=== PATIENT | female | born 1940 | race Caucasian/White ===

== ENCOUNTER 2017-08-13 15:14 | Inpatient (IN) | payer OTHER ==
[~2017-08-13] VITALS: Ht 170.2 cm; Wt 92.8 kg
[~2017-08-13 15:14] MED LIST: ADVAIR HFA120 INHALA IH; ENDOCET 5-3251 EACH PO; ERGOCALCIF50000 UNIT PO; LEVOFLOXACIN750 MG PO; LISINOPRIL20 MG PO; LISINOPRIL40 MG PO; LOVENOX40 MG/0.4 SC; NAPROSYN500 MG PO; NIFEDIPINE ER30 MG PO; PREDNISONE5 MG PO; PROAIR HFA8.5 GM IH; PROVENTIL,2.5 MG/3 M IH; RANITIDINE HCL150 MG PO; SIMVASTATIN20 MG PO; SPIRIVA1 INHALATI IH; TOPROL XL50 MG PO; TRAMADOL HCL50 MG PO; TYLENOL EXTRA500 MG PO; ZESTORETIC 20-1 EAC1 PO
[2017-08-13 16:02] LABS: BASOPHIL (%) 0.2 % (0-1); EOSINOPHIL (%) 0 % (0-5); HEMATOCRIT 38.7 % (36.0-46.0); HEMOGLOBIN 12.7 G/DL (11.9-15.5); IMMATURE GRANULOCYTE (%) 0.6 % (0.0-0.7); LYMPHOCYTE (%) 10.3 % (15-42); LYMPHOCYTE COUNT 1.6 K/uL (1.0-2.8); MCH 31.4 PG (29.0-34.0); MCHC 32.8 G/DL (30.0-36.0); MCV 95.6 FL (83-99); MONOCYTE (%) 7.8 % (3-12); MONOCYTE COUNT 1.2 K/uL (0-0.8); NEUTROPHIL (%) 81.1 % (45-76); NEUTROPHIL COUNT 12.4 K/uL (1.8-6.4); PLATELET COUNT 182 K/uL (156-360); RBC DIS.WIDTH-CV 13.4 % (11.8-14.6); RBC DIS.WIDTH-SD 47.9 % (39-53); RED BLOOD COUNT 4.05 M/uL (3.80-5.20); WHITE BLOOD COUNT 15.3 K/uL (4.1-10.2)
[2017-08-13 16:14] LABS: ALBUMIN 3.3 g/dL (3.2-4.8); CHLORIDE 103 mEq/L (99-109); POTASSIUM 3.7 mEq/L (3.7-5.4); SODIUM 141 mEq/L (136-147)
[2017-08-13 16:17] LABS: GLUCOSE 131 mg/dL (70-99); TOTAL PROTEIN 7.3 g/dL (6.4-8.3)
[2017-08-13 16:19] LABS: TOTAL BILIRUBIN 0.8 mg/dL (0.0-1.0)
[2017-08-13 16:20] LABS: ALKALINE PHOSPHATASE 146 IU/L (3-129); CREATININE 1.1 mg/dL (0.6-1.3); GFR ESTIMATE (CALCULATED) 51 mL/min/
[2017-08-13 16:21] LABS: UREA NITROGEN (BUN) 20 mg/dL (9-23)
[2017-08-13 16:22] LABS: AST (GOT) 21 IU/L (2-34)
[2017-08-13 16:23] LABS: ALT (GPT) 9 IU/L (3-49)
[2017-08-13 16:29] LABS: TROP-I INTERPRETATION NEGATIVE; TROPONIN-I 0.07 ng/mL (0.0-0.30)
[2017-08-13] MEDS ORDERED: LISINOPRIL20 MG PO (17:52)
[2017-08-13] MEDS ORDERED: COLACE100 MG PO (17:53)
[2017-08-13] MEDS ORDERED: FUROSEMIDE40 MG PO (17:53)
[2017-08-13 19:34] LABS: APPEARANCE CLOUDY ((CLEAR)); BILIRUBIN NEGATIVE; BLOOD SMALL; GLUCOSE (STRIP) NEGATIVE; KETONES 20; LEUKOCYTES SMALL; NITRITE POSITIVE; PROTEIN (STRIP) 100; SPECIFIC GRAVITY 1.026 (1.000-1.030)
[2017-08-13 20:17] LABS: COLOR DK YELLOW ((YELLOW)); RED BLOOD CELLS 0-5 /HPF (0-5)
[2017-08-13 20:18] LABS: BACTERIA 2+ /HPF; EPITHELIAL CELLS 2+ /HPF; MUCUS NONE SEEN /LPF; UCUL ADDED? YES
[2017-08-13 22:21] VITALS: BP 130/74
[2017-08-13 22:47] LABS: TROP-I INTERPRETATION NEGATIVE
[2017-08-13 23:22] VITALS: BP 136/75
[2017-08-14 03:54] VITALS: BP 153/78
[2017-08-14 06:08] LABS: BASOPHIL (%) 0.3 % (0-1); EOSINOPHIL (%) 0 % (0-5); HEMATOCRIT 34.2 % (36.0-46.0); HEMOGLOBIN 11.1 G/DL (11.9-15.5); IMMATURE GRANULOCYTE (%) 0.6 % (0.0-0.7); LYMPHOCYTE (%) 7.3 % (15-42); LYMPHOCYTE COUNT 0.6 K/uL (1.0-2.8); MCH 31.5 PG (29.0-34.0); MCHC 32.5 G/DL (30.0-36.0); MCV 97.2 FL (83-99); MONOCYTE COUNT 0.2 K/uL (0-0.8); NEUTROPHIL (%) 89.8 % (45-76); NEUTROPHIL COUNT 7.2 K/uL (1.8-6.4); PLATELET COUNT 142 K/uL (156-360); RBC DIS.WIDTH-CV 13.6 % (11.8-14.6); RBC DIS.WIDTH-SD 48.3 % (39-53); RED BLOOD COUNT 3.52 M/uL (3.80-5.20)
[2017-08-14 06:22] LABS: TROP-I INTERPRETATION NEGATIVE; TROPONIN-I 0.04 ng/mL (0.0-0.30)
[2017-08-14 08:00] VITALS: BP 150/71
[2017-08-14 14:48] LABS: INTER. NORMALIZED RATIO 1.4
[2017-08-14 15:55] VITALS: BP 154/70
[2017-08-14 19:41] VITALS: BP 145/81
[2017-08-15] VITALS (7 sets, daily range): BP systolic 120–167; BP diastolic 68–82
[2017-08-15 06:02] LABS: BASOPHIL (%) 0.2 % (0-1); EOSINOPHIL (%) 0 % (0-5); HEMATOCRIT 32.3 % (36.0-46.0); HEMOGLOBIN 10.8 G/DL (11.9-15.5); IMMATURE GRANULOCYTE (%) 1.8 % (0.0-0.7); LYMPHOCYTE (%) 5.5 % (15-42); LYMPHOCYTE COUNT 0.6 K/uL (1.0-2.8); MCH 31.8 PG (29.0-34.0); MCHC 33.4 G/DL (30.0-36.0); MONOCYTE (%) 3.7 % (3-12); MONOCYTE COUNT 0.4 K/uL (0-0.8); NEUTROPHIL (%) 88.8 % (45-76); NEUTROPHIL COUNT 10.2 K/uL (1.8-6.4); PLATELET COUNT 171 K/uL (156-360); RBC DIS.WIDTH-CV 13.4 % (11.8-14.6); RBC DIS.WIDTH-SD 46.8 % (39-53); WHITE BLOOD COUNT 11.5 K/uL (4.1-10.2)
[2017-08-15 06:18] LABS: INTER. NORMALIZED RATIO 1.3
[2017-08-15 06:30] LABS: CHLORIDE 106 MEQ/L (99-109); GFR ESTIMATE (CALCULATED) 57 mL/min/; GLUCOSE 137 mg/dL (70-99); POTASSIUM 3.9 MEQ/L (3.7-5.4); SODIUM 140 MEQ/L (136-147); UREA NITROGEN (BUN) 30 mg/dL (9-23)
[2017-08-16 07:08] LABS: HEMATOCRIT 33.6 % (36.0-46.0); HEMOGLOBIN 10.8 G/DL (11.9-15.5); MCH 30.8 PG (29.0-34.0); MCHC 32.1 G/DL (30.0-36.0); MCV 95.7 FL (83-99); PLATELET COUNT 217 K/uL (156-360); RBC DIS.WIDTH-CV 13.7 % (11.8-14.6); RBC DIS.WIDTH-SD 48.3 % (39-53); RED BLOOD COUNT 3.51 M/uL (3.80-5.20); WHITE BLOOD COUNT 12.8 K/uL (4.1-10.2)
[2017-08-16 07:25] VITALS: BP 178/85
[2017-08-16 07:26] LABS: INTER. NORMALIZED RATIO 1.3
[2017-08-16 07:36] LABS: CHLORIDE 106 MEQ/L (99-109); CREATININE 1.1 MG/DL (0.6-1.3); GFR ESTIMATE (CALCULATED) 51 mL/min/; GLUCOSE 114 mg/dL (70-99); POTASSIUM 4.5 MEQ/L (3.7-5.4); SODIUM 144 MEQ/L (136-147); UREA NITROGEN (BUN) 31 mg/dL (9-23)
[2017-08-16 07:38] LABS: ABS NEUTROPHIL COUNT 11.8; ANISOCYTOSIS 1+; ATYPICAL LYMPHOCYTE 0.9 %; BAND NEUTROPHILS 6.1 % (0-8.0); EOSINOPHIL ABS CT 0; LYMPHOCYTES 1.7 % (15.0-45.0); MACROCYTES 1+; METAMYELOCYTES 0.9 %; MONOCYTES 2.6 % (0-9.0); MYELOCYTES 1.7 %; PLAT.SUFFICIENCY ADEQUATE; SEG.NEUTROPHILS 86.1 % (46.0-76.0)
[2017-08-16 17:18] VITALS: BP 170/72
[2017-08-17 00:14] VITALS: BP 175/85
[2017-08-17 01:00] VITALS: BP 145/78
[2017-08-17 07:22] LABS: INTER. NORMALIZED RATIO 1.5
[2017-08-17 07:27] LABS: HEMATOCRIT 34.3 % (36.0-46.0); MCH 30.6 PG (29.0-34.0); MCHC 32.1 G/DL (30.0-36.0); MCV 95.3 FL (83-99); RBC DIS.WIDTH-CV 13.6 % (11.8-14.6)
[2017-08-17 07:30] VITALS: BP 186/84
[2017-08-17 07:42] LABS: CHLORIDE 106 MEQ/L (99-109); CREATININE 0.9 MG/DL (0.6-1.3); GFR ESTIMATE (CALCULATED) > 59 mL/min/; GLUCOSE 107 mg/dL (70-99); POTASSIUM 4.5 MEQ/L (3.7-5.4); SODIUM 142 MEQ/L (136-147); UREA NITROGEN (BUN) 30 mg/dL (9-23)
[2017-08-17 07:59] LABS: ABS NEUTROPHIL COUNT 11.7; BAND NEUTROPHILS 1.8 % (0-8.0); EOSINOPHIL ABS CT 0; LYMPHOCYTES 5.2 % (15.0-45.0); METAMYELOCYTES 0.9 %; MONOCYTES 8.7 % (0-9.0); MYELOCYTES 1.7 %; NUCLEATED RBC'S 0.9; PLAT.SUFFICIENCY ADEQUATE; PLATELET COUNT 202 K/uL (156-360); SEG.NEUTROPHILS 81.7 % (46.0-76.0)
[2017-08-17] MEDS ORDERED: LEVAQUIN750 MG PO (09:19)
[2017-08-17] MEDS ORDERED: ELIQUIS5 MG PO (09:20)
[2017-08-17] MEDS ORDERED: MUCINEX600 MG PO (09:23)
[2017-08-17] MEDS ORDERED: PREDNISONE20 MG PO (09:23)
[2017-08-17] MEDS ORDERED: CYANOCOBALAM1000 MCG PO (09:23)
[2017-08-17 16:00] VITALS: BP 160/72
== END 2017-08-17 22:15 | disposition home or self-care (01) | DRG 871 ==
LOC: EME 15:14 → EDOF 19:34 → 2EAST 19:34 → ENRESERV 19:36 → 2EAST 21:15
PROVIDERS: Emergency Medicine; Hospitalist; Internal Medicine; Physician Assistant Medical
DX: A41.9 Sepsis, unspecified organism (principal); I26.99 Other pulmonary embolism without acute cor pulmonale; J18.9 Pneumonia, unspecified organism; J44.0 Chronic obstructive pulmonary disease with (acute) lower respiratory infection; E78.5 Hyperlipidemia, unspecified; Z96.643 Presence of artificial hip joint, bilateral; R00.0 Tachycardia, unspecified; J44.1 Chronic obstructive pulmonary disease with (acute) exacerbation; I10 Essential (primary) hypertension; M19.90 Unspecified osteoarthritis, unspecified site; R06.82 Tachypnea, not elsewhere classified; N17.9 Acute kidney failure, unspecified; J96.01 Acute respiratory failure with hypoxia; N39.0 Urinary tract infection, site not specified; I82.412 Acute embolism and thrombosis of left femoral vein; M79.89 Other specified soft tissue disorders; Z87.891 Personal history of nicotine dependence; Z86.73 Personal history of transient ischemic attack (TIA), and cerebral infarction without residual deficits; Z79.01 Long term (current) use of anticoagulants
CPT/HCPCS: 71046; 71275; 80048; 80053; 81003; 82948; 83605; 84484; 85025; 85379; 85610; 87040; 87070; 87086; 87205; 87449; 87502; 93005; 93971; 94640; 94640 76; 94799; 99202; 99281; 99285; J0295; J0456; J0696; J1100; J1644; J1650; J1815; J1956; J2930; J3420; J7030; J7040; J7050; J7512; J7644

== ENCOUNTER 2018-02-16 18:12 | Inpatient (IN) | payer OTHER ==
[~2018-02-16] VITALS: Ht 170.2 cm; Wt 89.7 kg
[~2018-02-16 18:12] MED LIST changes: +COLACE100 MG PO; +CYANOCOBALAM1000 MCG PO; +ELIQUIS5 MG PO; +FUROSEMIDE40 MG PO; +LEVAQUIN750 MG PO; +MUCINEX600 MG PO; +PREDNISONE20 MG PO
[2018-02-16 19:22] LABS: BASOPHIL (%) 0.3 % (0-1); EOSINOPHIL (%) 0.3 % (0-5); HEMATOCRIT 34.2 % (36.0-46.0); HEMOGLOBIN 11.4 G/DL (11.9-15.5); IMMATURE GRANULOCYTE (%) 0.6 % (0.0-0.7); LYMPHOCYTE (%) 8.2 % (15-42); MCH 28.9 PG (29.0-34.0); MCHC 33.3 G/DL (30.0-36.0); MCV 86.8 FL (83-99); MONOCYTE (%) 10.4 % (3-12); MONOCYTE COUNT 1.3 K/uL (0-0.8); NEUTROPHIL (%) 80.2 % (45-76); NEUTROPHIL COUNT 10.1 K/uL (1.8-6.4); PLATELET COUNT 167 K/uL (156-360); RBC DIS.WIDTH-SD 48.3 % (39-53); RED BLOOD COUNT 3.94 M/uL (3.80-5.20); WHITE BLOOD COUNT 12.6 K/uL (4.1-10.2)
[2018-02-16 19:28] LABS: INTER. NORMALIZED RATIO 1.8
[2018-02-16 19:40] LABS: ALBUMIN 3.5 g/dL (3.2-4.8); CHLORIDE 102 mEq/L (99-109); SODIUM 138 mEq/L (136-147)
[2018-02-16 19:41] LABS: MAGNESIUM 1.9 mg/dL (1.3-2.7)
[2018-02-16 19:43] LABS: GLUCOSE 111 mg/dL (70-99); TROP-I INTERPRETATION NEGATIVE; TROPONIN-I < 0.01 ng/mL (0.0-0.30)
[2018-02-16 19:45] LABS: TOTAL BILIRUBIN 0.9 mg/dL (0.0-1.0)
[2018-02-16 19:46] LABS: ALKALINE PHOSPHATASE 83 IU/L (3-129); CREATININE 1.1 mg/dL (0.6-1.3); GFR ESTIMATE (CALCULATED) 51 mL/min/
[2018-02-16 19:48] LABS: AST (GOT) 8 IU/L (2-34); DIRECT BILIRUBIN 0.3 mg/dL (0.0-0.3); UREA NITROGEN (BUN) 17 mg/dL (9-23)
[2018-02-16 19:49] LABS: ALT (GPT) 3 IU/L (3-49)
[2018-02-16] MEDS ORDERED: METOPROLOL SUCC25 MG PO (21:52)
[2018-02-16] MEDS ORDERED: ELIQUIS5 MG PO (23:31)
[2018-02-17] VITALS (7 sets, daily range): BP systolic 146–180; BP diastolic 70–95
[2018-02-17 02:08] LABS: APPEARANCE CLOUDY ((CLEAR)); BILIRUBIN NEGATIVE; BLOOD NEGATIVE; COLOR YELLOW ((YELLOW)); GLUCOSE (STRIP) NEGATIVE; KETONES 20; LEUKOCYTES NEGATIVE; NITRITE NEGATIVE; PROTEIN (STRIP) 100; SPECIFIC GRAVITY 1.026 (1.000-1.030)
[2018-02-17 02:14] LABS: BACTERIA RARE /HPF; EPITHELIAL CELLS 2+ /HPF; MUCUS TRACE /LPF; RED BLOOD CELLS NONE SEEN /HPF (0-5); UCUL ADDED? NO; WHITE BLOOD CELLS 0-5 /HPF (0-5)
[2018-02-17 05:55] LABS: BASOPHIL (%) 0.2 % (0-1); EOSINOPHIL (%) 0.1 % (0-5); HEMATOCRIT 33.8 % (36.0-46.0); HEMOGLOBIN 10.9 G/DL (11.9-15.5); LYMPHOCYTE COUNT 0.9 K/uL (1.0-2.8); MCH 28.4 PG (29.0-34.0); MCHC 32.2 G/DL (30.0-36.0); MONOCYTE (%) 1.5 % (3-12); MONOCYTE COUNT 0.2 K/uL (0-0.8); NEUTROPHIL (%) 89.2 % (45-76); NEUTROPHIL COUNT 9.8 K/uL (1.8-6.4); PLATELET COUNT 160 K/uL (156-360); RBC DIS.WIDTH-CV 15.2 % (11.8-14.6); RED BLOOD COUNT 3.84 M/uL (3.80-5.20); WHITE BLOOD COUNT 10.9 K/uL (4.1-10.2)
[2018-02-17 06:17] LABS: CHLORIDE 104 MEQ/L (99-109); GFR ESTIMATE (CALCULATED) 57 mL/min/; GLUCOSE 137 mg/dL (70-99); POTASSIUM 4.5 MEQ/L (3.7-5.4); SODIUM 140 MEQ/L (136-147); UREA NITROGEN (BUN) 12 mg/dL (9-23)
[2018-02-18 00:28] VITALS: BP 180/90
[2018-02-18 04:18] VITALS: BP 142/87
[2018-02-18 07:39] VITALS: BP 124/87
[2018-02-18 10:01] LABS: HEMATOCRIT 32.8 % (36.0-46.0); HEMOGLOBIN 10.6 G/DL (11.9-15.5); MCH 28.7 PG (29.0-34.0); MCHC 32.3 G/DL (30.0-36.0); MCV 88.9 FL (83-99); PLATELET COUNT 184 K/uL (156-360); RBC DIS.WIDTH-CV 15.2 % (11.8-14.6); RBC DIS.WIDTH-SD 50.2 % (39-53); RED BLOOD COUNT 3.69 M/uL (3.80-5.20); WHITE BLOOD COUNT 12.7 K/uL (4.1-10.2)
[2018-02-18 11:47] VITALS: BP 124/87
[2018-02-18 15:28] VITALS: BP 168/83
[2018-02-19 00:11] VITALS: BP 177/86
[2018-02-19 07:09] VITALS: BP 157/88
[2018-02-19 08:12] LABS: HEMATOCRIT 31.5 % (36.0-46.0); HEMOGLOBIN 10.2 G/DL (11.9-15.5); MCH 28.7 PG (29.0-34.0); MCHC 32.4 G/DL (30.0-36.0); MCV 88.5 FL (83-99); PLATELET COUNT 197 K/uL (156-360); RBC DIS.WIDTH-CV 15.4 % (11.8-14.6); RBC DIS.WIDTH-SD 50.6 % (39-53); RED BLOOD COUNT 3.56 M/uL (3.80-5.20); WHITE BLOOD COUNT 15.6 K/uL (4.1-10.2)
[2018-02-19 15:27] VITALS: BP 156/85
[2018-02-20 00:35] VITALS: BP 169/96
[2018-02-20 08:06] VITALS: BP 177/89
[2018-02-20] MEDS ORDERED: AERONEB GO NEB1 EACH MC (09:28)
[2018-02-20] MEDS ORDERED: AUGMENTIN875 MG PO (09:28)
[2018-02-20] MEDS ORDERED: PREDNISONE10 MG PO (09:28)
[2018-02-20] MEDS ORDERED: LIDOCAINE20 MG/1 M5 MM (09:28)
[2018-02-20] MEDS ORDERED: DUONEB 2.5-0.5 M3 ML AEROSOL (09:28)
== END 2018-02-20 15:54 | disposition home or self-care (01) | DRG 190 ==
LOC: EME 18:12 → 5SOUTH 22:26 → EDOF 22:26 → 5SOUTH 23:42
PROVIDERS: Emergency Medicine; Hospitalist; Physician Assistant Medical
DX: J44.0 Chronic obstructive pulmonary disease with (acute) lower respiratory infection (principal); J18.9 Pneumonia, unspecified organism; N39.0 Urinary tract infection, site not specified; I10 Essential (primary) hypertension; J44.1 Chronic obstructive pulmonary disease with (acute) exacerbation; M19.90 Unspecified osteoarthritis, unspecified site; Z86.73 Personal history of transient ischemic attack (TIA), and cerebral infarction without residual deficits; Z87.891 Personal history of nicotine dependence; Z96.643 Presence of artificial hip joint, bilateral; K14.6 Glossodynia; E78.5 Hyperlipidemia, unspecified; Z86.718 Personal history of other venous thrombosis and embolism; I07.1 Rheumatic tricuspid insufficiency; Z99.81 Dependence on supplemental oxygen; D72.829 Elevated white blood cell count, unspecified; T38.0X5A Adverse effect of glucocorticoids and synthetic analogues, initial encounter
CPT/HCPCS: 71046; 80048; 80076; 81003; 83605; 83735; 83880; 84484; 85025; 85027; 85610; 87040; 87070; 87205; 87449; 93005; 94640; 94799; 97530 GO; 97530 GP; 99281; 99285; J0295; J0456; J2543; J2920; J2930; J3370; J7050